=== PATIENT | female | born 1965 | race Caucasian/White ===

== ENCOUNTER 2019-11-28 12:38 | Outpatient (CLI) | payer BC | END 2019-11-28 12:39 | disposition home or self-care (01) | LOC: LAB.S 12:38 | PROVIDERS: ATTEND Family Medicine | DX: E55.9 Vitamin D deficiency, unspecified (principal) | CPT/HCPCS: 36415; 82306 ==

== ENCOUNTER 2019-12-19 13:19 | Outpatient (CLI) | payer BC ==
--- NOTE | 2019-12-20 16:19 | Mammography Report ---
BILATERAL DIGITAL SCREENING MAMMOGRAM 3D/2D: 12/19/2019 CLINICAL: Routine screening. Family history of breast cancer. Comparison is made to exams dated: 11/22/2016 mammogram, 10/20/2015 mammogram, and 10/20/2015 mammogram - [facility]. The tissue of both breasts is heterogeneously dense. This may low er the sensitivity of mammography. There is a focal asymmetry in the right breast central to the nipple anterior depth. There is possib le architectural distortion associated with the focal asymmetry. No other significant masses, calcifications, or other findings are seen in either breast. IMPRESSION: INCOMPLETE: NEEDS ADDITIONAL IMAGING EVALUATION The focal asymmetry in the right breast is indeterminate. Additional views with possible ultrasound are recommended. This exam was interpreted at Station ID: [id number]. NOTE: For mammograms, a report in lay terms will be sent to the patient. Approximately 15% of breast malignancies will not be visualized mammographically. In the management of a palpable breast mass, a negative mammogram must not discourage biopsy of a clinically suspicious lesion. Electronically Signed By: Aleida Freeman M.D. lk/:12/19/2019 16:23:47 ACR BI-RADS Category 0: Incomplete 3340F PARENCHYMAL PATTERN: (D) - The breast(s) demonstrate(s) heterogeneously dense fibroglandular silas walters. BI-RADS CATEGORY: (0) - 0 Mammo and [place] [id number] Immediate follow-up LATERALITY: (B)
== END 2019-12-19 13:20 | disposition home or self-care (01) ==
LOC: DI 13:19
DX: Z12.31 Encounter for screening mammogram for malignant neoplasm of breast (principal); Z80.3 Family history of malignant neoplasm of breast; R92.8 Other abnormal and inconclusive findings on diagnostic imaging of breast
CPT/HCPCS: 77063; 77067

== ENCOUNTER 2020-01-15 11:31 | Outpatient (CLI) | payer BC ==
--- NOTE | 2020-01-15 19:14 | XRAY Report ---
PROCEDURE: Foot 3 View RT INDICATIONS: HALLUX LIMITUS OF RIGHT FOOT TECHNIQUE: 3 views of the foot were acquired. COMPARISON: None. FINDINGS: Bones: No acute fractures or dislocations. There are moderate-severe degenerative changes with promi nent osteophyte formation involving the right first metatarsophalangeal joint. Mild overlying soft ti ssue swelling. There are degenerative changes of the dorsal right midfoot. Tiny plantar calcaneal spu r. Small retrocalcaneal spur. No suspicious bony lesions. Soft tissues: No tibiotalar joint effusion. Achilles tendon appears normal. IMPRESSION: Right foot without acute radiographic abnormalities. Moderate-severe hypertrophic osteoarthritic changes at the right first metatarsophalangeal joint. Mild dorsal right midfoot degenerative change. Reviewed by: Pato Alicia MD on 01/15/2020 6:12 PM [facility] Approved by: Pato Alicia MD on 01/15/2020 6:12 PM [facility] Station ID: [id number]
== END 2020-01-15 11:32 | disposition home or self-care (01) ==
LOC: DI.S 11:31
PROVIDERS: ATTEND Podiatrist
DX: M20.5X1 Other deformities of toe(s) (acquired), right foot (principal); M19.071 Primary osteoarthritis, right ankle and foot

== ENCOUNTER 2020-02-02 09:56 | Outpatient (CLI) | payer BC ==
--- NOTE | 2020-02-04 13:17 | Ultrasound Report ---
LIMITED ULTRASOUND OF RIGHT BREAST: 02/02/2020 CLINICAL: Patient returns today to evaluate a focal asymmetry in the right breast. Comparison is made to exams dated: 02/02/2020 mammogram, 12/19/2019 mammogram - [facility], 11/22/2016 mammogram, 10/20/2015 mammogram, and 10/20/2015 mammogram - [facility]. Ultrasound of the right breast 2-5 o'clock, 7-10 o'clock, and retroareolar regions was performed. No shadowing mass or other suspicious finding. IMPRESSION: SUSPICIOUS OF MALIGNANCY No sonographic abnormality to correspond with the spiculated mass-like area of architectural distorti on seen mammographically. Stereotactic biopsy is recommended. This exam was interpreted at Station ID: [id number]. Electronically Signed By: Dipesh Martinez M.D. jr/:02/02/2020 16:47:18 Ultrasound BI-RADS: 4 Suspicious for malignancy BI-RADS CATEGORY: (4) - 4 None [id number] Immediate follow-up LATERALITY: ()
--- NOTE | 2020-02-04 13:17 | Mammography Report ---
UNILATERAL RIGHT DIGITAL DIAGNOSTIC MAMMOGRAM 3D/2D: 02/02/2020 CLINICAL: Patient returns today to evaluate a focal asymmetry with possible architectural distortion in the right breast. Comparison is made to exams dated: 12/19/2019 mammogram - [facility], 11/22/2016 ma mmogram, 10/20/2015 mammogram, and 10/20/2015 mammogram - [facility]. The tissue o f right breast is heterogeneously dense. This may lower the sensitivity of mammography. There is a 2 cm irregular high density mass with a spiculated margin in the right breast central to t he nipple anterior depth 5 cm from the nipple. There is architectural distortion associated with the mass. No other significant masses or calcifications are seen in the breast. IMPRESSION: INCOMPLETE: NEEDS ADDITIONAL IMAGING EVALUATION The 2 cm irregular high density mass in the right breast is indeterminate. An ultrasound is recommen ded and has been scheduled to immediately follow. This exam was interpreted at Station ID: [id number]. NOTE: For mammograms, a report in lay terms will be sent to the patient. Approximately 15% of breast malignancies will not be visualized mammographically. In the management of a palpable breast mass, a negative mammogram must not discourage biopsy of a clinically suspicious lesion. Electronically Signed By: Dipesh Martinez M.D. jr/:02/02/2020 10:53:42 ACR BI-RADS Category 0: Incomplete 3340F PARENCHYMAL PATTERN: (D) - The breast(s) demonstrate(s) heterogeneously dense fibroglandular parenchy ma. BI-RADS CATEGORY: (0) - 0 Ultrasound [id number] Immediate follow-up LATERALITY: (B)
== END 2020-02-02 09:57 | disposition home or self-care (01) ==
LOC: DI 09:56
PROVIDERS: ATTEND Family Medicine
DX: R92.8 Other abnormal and inconclusive findings on diagnostic imaging of breast (principal)
CPT/HCPCS: 76642

== ENCOUNTER 2020-02-13 12:15 | Outpatient (CLI) | payer BC ==
[2020-02-13 18:14] LABS: BILIRUBIN,URINE NEGATIVE (NEGATIVE); GLUCOSE, URINE (UA) NEGATIVE (NEGATIVE); KETONES,URINE (UA) NEGATIVE (NEGATIVE); LEUKOCYTE ESTERASE, URINE NEGATIVE (NEGATIVE); NITRITE,URINE NEGATIVE (NEGATIVE); OCCULT BLOOD,URINE SMALL (NEGATIVE); PH,URINE 6.5 PH (5.0-7.5); PROTEIN,URINE NEGATIVE (NEGATIVE); UROBILINOGEN,URINE 0.2 (NORMAL) E.U./dL (NORMAL)
[2020-02-13 18:15] LABS: CLARITY,URINE CLEAR (CLEAR)
[2020-02-13 18:21] LABS: CALCIUM 9.5 mg/dL (8.5-10.3); CREATININE 0.5 mg/dL (0.4-1.0); PHOSPHORUS 3.2 mg/dL (2.5-4.6)
[2020-02-13 18:29] LABS: BACTERIA,URINE Few /HPF (None Seen); RBC,URINE 0-5 /HPF (0-5); SQUAMOUS EPITHELIAL CELL,UR MOD Squamous (<= Few)
[2020-02-13 21:42] LABS: HEMOGLOBIN A1c% 5.6 % (4.27-6.07)
== END 2020-02-13 12:16 | disposition home or self-care (01) ==
LOC: LAB.S 12:15
PROVIDERS: ATTEND Family Medicine
DX: E55.9 Vitamin D deficiency, unspecified (principal); R35.0 Frequency of micturition; R73.03 Prediabetes
CPT/HCPCS: 36415; 80069; 81001; 82306; 83036; 87086

== ENCOUNTER 2020-04-29 13:40 | Outpatient (CLI) | payer BC | END 2020-04-29 13:41 | disposition home or self-care (01) | LOC: LAB.S 13:40 | PROVIDERS: ATTEND Family Medicine | DX: E55.9 Vitamin D deficiency, unspecified (principal) | CPT/HCPCS: 36415; 82306 ==

== ENCOUNTER 2020-10-26 16:25 | Outpatient (CLI) | payer BC ==
[2020-10-26 20:40] LABS: % IRON SATURATION 12 % (20-50); IRON 58 ug/dL (28-170); TOTAL IRON BINDING CAPACITY 504 ug/dL (250-450); TRANSFERRIN 360 mg/dL (192-382)
[2020-10-31 16:17] LABS: MYCOPLASMA PNEUMONIAE IGG < or = 0.90; MYCOPLASMA PNEUMONIAE IGM 38 U/mL
== END 2020-10-26 16:26 | disposition home or self-care (01) ==
LOC: LAB.S 16:25
PROVIDERS: ATTEND Acupuncturist
DX: B27.00 Gammaherpesviral mononucleosis without complication (principal); D89.49 Other mast cell activation disorder; E61.1 Iron deficiency; A49.3 Mycoplasma infection, unspecified site
CPT/HCPCS: 36415; 81599; 82384; 82728; 83088; 83520; 83540; 84466; 86316; 86663; 86665; 86738

== ENCOUNTER 2021-06-27 16:50 | Outpatient (CLI) | payer BC ==
[2021-06-27 20:33] LABS: % IRON SATURATION 9 % (20-50); IRON 44 ug/dL (28-170); TOTAL IRON BINDING CAPACITY 493 ug/dL (250-450); TRANSFERRIN 352 mg/dL (192-382)
[2021-07-02 17:01] LABS: THYROID PEROXIDASE ANTIBODIES 181 IU/mL (<9)
== END 2021-06-27 16:51 | disposition home or self-care (01) ==
LOC: LAB.S 16:50
PROVIDERS: ATTEND Acupuncturist
DX: E61.1 Iron deficiency (principal); E06.9 Thyroiditis, unspecified; E61.7 Deficiency of multiple nutrient elements
CPT/HCPCS: 36415; 81599; 82728; 83540; 84238; 84466; 86376; 86800

== ENCOUNTER 2023-01-31 12:29 | Outpatient (CLI) | payer MEDICARE ==
[2023-01-31 15:30] LABS: ESTIMATED AVERAGE GLUCOSE 114 mg/dL (70-100); HEMOGLOBIN A1c% 5.6 % (4.27-6.07)
== END 2023-01-31 12:30 | disposition home or self-care (01) ==
LOC: LAB.S 12:29
PROVIDERS: ATTEND Family Medicine
DX: R73.03 Prediabetes (principal)
CPT/HCPCS: 36415; 83036

== ENCOUNTER 2023-09-06 07:00 | Outpatient (CLI) | payer MEDICARE ==
--- NOTE | 2023-09-07 06:53 | XRAY Report ---
PROCEDURE: Hand 3+V BL INDICATIONS: OSTEOARTHRITIS BILATERAL THUMBS TECHNIQUE: 3 views of the hand(s) acquired. COMPARISON: None. FINDINGS: Bones: No fractures or dislocations. No suspicious bony lesions. Interphalangeal and first CMC [place] int space narrowing with osteophytosis. Soft tissues: No suspicious soft tissue calcifications or masses. IMPRESSION: No acute bony abnormality. Moderate interphalangeal and first CMC osteoarthritis, right greater than left. Reviewed by: Anuj Hernandez MD on 09/07/2023 6:52 AM PDT Approved by: Anuj Hernandez MD on 09/07/2023 6:52 AM PDT Station ID: [id number]
== END 2023-09-06 23:59 | disposition home or self-care (01) ==
LOC: DI.S 07:00
PROVIDERS: ATTEND Internal Medicine Rheumatology
DX: M18.0 Bilateral primary osteoarthritis of first carpometacarpal joints (principal)